=== PATIENT | male | born 1965 ===

== ENCOUNTER 2017-07-25 14:30 | Emergency (ER) | payer SELFPAY ==
[2017-07-25 15:02] VITALS: BP 123/79
--- NOTE | 2017-07-25 15:10 | UC ---
Hand/Wrist HPI - HPI Summary HPI Summary: Pt presents with right wrist pain s/p fall yesterday. He tells me that he slipped on the ice and fell with his hands outwards. His right wrist bent backwards. Has been painful since. He has not taken anything for his pain. He wants to make sure that it is not fractured. Denies numbness, tingling, or history of injury. - History Of Current Complaint Chief Complaint: UCUpperExtremity Stated Complaint: HAND INJURY Time Seen by Provider: 07/25/17 15:05 Hx Obtained From: Patient Mechanism Of Injury: FOOSH Onset/Duration: Sudden Onset Severity Initially: Mild Severity Currently: Mild Pain Intensity: 2 Pain Scale Used: 0-10 Numeric Character Of Pain: Aching, Stiffness Aggravating Factor(s): Movement, Lifting Alleviating Factor(s): Rest - Allergies/Home Medications Allergies/Adverse Reactions: Allergies Allergy/AdvReac Type Severity Reaction Status Date / Time Penicillins Allergy Anaphylatic Verified 07/25/17 15:02 Shock Home Medications: Home Medications NK [No Home Medications Reported] 07/25/17 [History Confirmed 07/25/17] PMH/Surg Hx/FS Hx/Imm Hx Previously Healthy: Yes - Surgical History Surgical History: None - Family History Known Family History: Positive: None - Social History Lives: Alone Alcohol Use: Occasionally Substance Use Type: None Smoking Status (MU): Never Smoked Tobacco Review of Systems Constitutional: Negative Skin: Negative Respiratory: Negative Cardiovascular: Negative Motor: Negative Neurovascular: Negative Musculoskeletal: Other: - Pain right wrist Neurological: Negative Psychological: Negative All Other Systems Reviewed And Are Negative: Yes Physical Exam Triage Information Reviewed: Yes Appearance: Well-Appearing, No Pain Distress, Well-Nourished Vital Signs: Initial Vital Signs Temp 98.4 F 07/25/17 14:57 Pulse 92 07/25/17 14:57 Resp 18 07/25/17 14:57 BP 123/79 07/25/17 14:57 Pulse Ox 98 07/25/17 14:57 Vital Signs Reviewed: Yes Neck: Positive: Supple, Nontender Respiratory: Positive: Lungs clear, Normal breath sounds, No respiratory distress, No accessory muscle use Cardiovascular: Positive: RRR, No Murmur, Pulses Normal - Radial and ulnar Musculoskeletal: Positive: Strength Intact - Right wrise, ROM Intact - Right wrist, Edema @ - Right wrist mild, Other: - Right wrist: Mild TTP over dorsal aspect. No snuffbox tenderness. No obvious bony deformities or ecchymosis. Neurological: Positive: Alert, Other: - Sensations intact right hand and all fingers Psychological: Positive: Age Appropriate Behavior Skin: Negative: rashes, significant lesion(s) Hand/Wrist Course/Dx - Course Course Of Treatment: XR: IMPRESSION: NO ACUTE FRACTURE. Provided with a right wrist cock up splint. Advised RICE and ibuprofen prn. F/u if symptoms persist - Differential Dx/Diagnosis Provider Diagnoses: Right wrist pain. Fall Discharge - Discharge Plan Condition: Stable Disposition: HOME Patient Education Materials: Wrist Sprain (ED) Referrals: No Primary Care Phys,NOPCP [Primary Care Provider] - Additional Instructions: If you develop a fever, shortness of breath, chest pain, new or worsening symptoms - please call your PCP or go to the ED. 1) Rest, Ice, and elevate your wrist as much as possible for the next 24-48 hours 2) May take ibuprofen 600mg every 6-8 hours as needed for pain.
--- NOTE | 2017-07-25 15:45 | RAD ---
INDICATION: Right wrist pain. Fall. COMPARISON: None TECHNIQUE: AP, lateral, and oblique views were obtained. FINDINGS: There is no acute fracture or dislocation. 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 Mild soft tissue swelling. IMPRESSION: NO ACUTE FRACTURE.
== END 2017-07-25 16:05 | disposition home or self-care (01) ==
LOC: UCEAST 14:30
DX: M25.531 Pain in right wrist (principal); Z88.0 Allergy status to penicillin
CPT/HCPCS: 99202; G0463

== ENCOUNTER 2021-03-25 22:11 | Inpatient (IN) ==
[2021-03-25 22:59] LABS: ABS Lymphocytes 1.6 10^3/ul (1.0-4.8); ABS Monocytes 0.6 10^3/ul (0-0.8); ABS Neutrophils 13.5 10^3/ul (1.5-7.7); Eosinophil % 0.2 %; Hematocrit 43 % (42-52); Hemoglobin 14.6 g/dL (14.0-18.0); Lymphocyte % 10.3 %; Mean Corpuscular HGB Conc 34 g/dL (31-36); Mean Corpuscular Hemoglobin 31 pg (27-31); Mean Corpuscular Volume 91 fL (80-94); Mean Platelet Volume 7.8 fL (7.4-10.4); Platelet Count 178 10^3/uL (150-450); Red Blood Count 4.68 10^6 /uL (4.18-5.48); Red Cell Distribution Width 13 % (10-15); White Blood Count 15.8 10^3/uL (3.5-10.8)
[2021-03-25 23:06] LABS: Rapid COVID-19 Molecular Undetected (Undetected)
[2021-03-26 00:14] LABS: Albumin 2.9 g/dL (3.2-5.2); Anion Gap 10 mmol/L (2-11); CO2 Carbon Dioxide 29 mmol/L (22-32); Calcium 10.7 mg/dL (8.6-10.3); Chloride 94 mmol/L (101-111); Potassium 3.9 mmol/L (3.5-5.0); Sodium 133 mmol/L (135-145)
[2021-03-26 00:20] LABS: ALT 67 U/L (7-52); AST 64 U/L (13-39); Albumin/Globulin Ratio 0.6 (1-3); Alkaline Phosphatase 87 U/L (35-149); Blood Urea Nitrogen 44 mg/dL (6-24); Globulin 4.7 g/dL (2-4); Glucose 121 mg/dL (70-100); Total Protein 7.6 g/dL (6.4-8.9)
[2021-03-26] MEDS ORDERED: Aztreonam 2 GM in NS 0.9% 50 ML 50 ML IVPB ONE (00:24)
[2021-03-26] MEDS ORDERED: Levofloxacin 750 MG IVPREMIX 750 MG/150 ML BAG IVPB ONE (00:24)
[2021-03-26] MEDS ORDERED: Heparin DRIP 25,000 UNITS BAG 25,000 UNITS/500 ML BAG IV SCH ×2 (00:30→03:00)
[2021-03-26] MEDS ORDERED: Heparin 5000 UNITS/ML 1 mL VIAL IV SCH ×2 (01:00→03:00)
[2021-03-26] MEDS ORDERED: NS 0.9% 50 ML 50 ML ONE (01:03)
[2021-03-26 01:05] LABS: Troponin I 0.12 ng/mL (<0.03)
[2021-03-26] MEDS ORDERED: Iodixanol (CONTRAST) 320 MG/ML 100 ML SDV IV ONE (01:09)
[2021-03-26] MEDS ORDERED: Dexamethasone IV 4 MG/ML VIAL 1 ml VIAL IV SLOW PU ONE (01:35)
[2021-03-26 05:26] LABS: ABS Basophils 0.1 10^3/ul (0-0.2); ABS Lymphocytes 1.3 10^3/ul (1.0-4.8); ABS Monocytes 0.5 10^3/ul (0-0.8); ABS Neutrophils 11.5 10^3/ul (1.5-7.7); Eosinophil % 0.1 %; Hematocrit 40 % (42-52); Hemoglobin 13.9 g/dL (14.0-18.0); Lymphocyte % 9.8 %; Mean Corpuscular HGB Conc 35 g/dL (31-36); Mean Corpuscular Hemoglobin 32 pg (27-31); Mean Corpuscular Volume 91 fL (80-94); Mean Platelet Volume 7.9 fL (7.4-10.4); Platelet Count 155 10^3/uL (150-450); Red Blood Count 4.38 10^6 /uL (4.18-5.48); Red Cell Distribution Width 13 % (10-15); White Blood Count 13.4 10^3/uL (3.5-10.8)
[2021-03-26 05:38] LABS: Activated Partial Thrombo Time 31.7 seconds (26.0-38.0); INR 1.68 (0.86-1.15)
[2021-03-26] MEDS: cefTRIAXone ADVAN VIAL 1 GM in NS 0.9% 50 ML 50 ML IVPB SCH (05:40)
[2021-03-26 05:44] LABS: ALT 54 U/L (7-52); AST 47 U/L (13-39); Albumin 2.7 g/dL (3.2-5.2); Albumin/Globulin Ratio 0.6 (1-3); Alkaline Phosphatase 72 U/L (35-149); Globulin 4.3 g/dL (2-4); Indirect Bilirubin 0.5 mg/dL (0.3-1.0)
[2021-03-26 06:02] LABS: Troponin I 0.06 ng/mL (<0.03)
[2021-03-26 06:07] LABS: Influenza A Molecular Negative (Negative); Influenza B Molecular Negative (Negative)
[2021-03-26] MEDS: Azithromycin 500 mg/250 ml NS 500 MG/250 ML BAG IVPB SCH (06:09)
[2021-03-26 07:55] LABS: Anion Gap 9 mmol/L (2-11); CO2 Carbon Dioxide 25 mmol/L (22-32); Chloride 97 mmol/L (101-111); Potassium 4.5 mmol/L (3.5-5.0); Sodium 131 mmol/L (135-145)
[2021-03-26 08:01] LABS: Blood Urea Nitrogen 37 mg/dL (6-24); Glucose 114 mg/dL (70-100)
[2021-03-26] MEDS: Enoxaparin 100 MG/ML SYR SUBCUT SCH ×2 (11:51→23:09)
[2021-03-27 07:43] LABS: ABS Eosinophils 0.1 10^3/ul (0-0.6); ABS Lymphocytes 1.9 10^3/ul (1.0-4.8); ABS Monocytes 0.6 10^3/ul (0-0.8); ABS Neutrophils 11.8 10^3/ul (1.5-7.7); Eosinophil % 0.9 %; Hematocrit 40 % (42-52); Hemoglobin 13.7 g/dL (14.0-18.0); Mean Corpuscular HGB Conc 35 g/dL (31-36); Mean Corpuscular Hemoglobin 32 pg (27-31); Mean Corpuscular Volume 92 fL (80-94); Mean Platelet Volume 7.9 fL (7.4-10.4); Platelet Count 204 10^3/uL (150-450); Red Blood Count 4.32 10^6 /uL (4.18-5.48); Red Cell Distribution Width 14 % (10-15); White Blood Count 14.5 10^3/uL (3.5-10.8)
[2021-03-27 08:00] LABS: Albumin 2.5 g/dL (3.2-5.2); Albumin/Globulin Ratio 0.6 (1-3); Calcium 10.7 mg/dL (8.6-10.3); Globulin 3.9 g/dL (2-4); Magnesium 2.3 mg/dL (1.9-2.7); Phosphorus 3.5 mg/dL (2.5-5.0); Potassium 4.9 mmol/L (3.5-5.0); Total Bilirubin 0.5 mg/dL (0.2-1.0); Total Protein 6.4 g/dL (6.4-8.9)
[2021-03-27] MEDS: cefTRIAXone ADVAN VIAL 1 GM in NS 0.9% 50 ML 50 ML IVPB SCH (08:44)
[2021-03-27] MEDS ORDERED: Morphine 2 MG/ML SYRINGE IV ONE ×2 (09:06→23:13)
[2021-03-27] MEDS: Azithromycin 500 mg/250 ml NS 500 MG/250 ML BAG IVPB SCH (09:23)
[2021-03-27] MEDS: Enoxaparin 100 MG/ML SYR SUBCUT SCH ×3 (11:18→23:28)
[2021-03-27] MEDS: Morphine 2 MG/ML SYRINGE IV PRN ×2 (15:43→19:48)
[2021-03-28] MEDS: Morphine 2 MG/ML SYRINGE IV PRN ×3 (01:02→17:57)
[2021-03-28 05:14] LABS: ABS Basophils 0.1 10^3/ul (0-0.2); ABS Eosinophils 0.5 10^3/ul (0-0.6); ABS Lymphocytes 2.3 10^3/ul (1.0-4.8); ABS Monocytes 0.5 10^3/ul (0-0.8); ABS Neutrophils 10.9 10^3/ul (1.5-7.7); Eosinophil % 3.2 %; Hematocrit 44 % (42-52); Hemoglobin 15.3 g/dL (14.0-18.0); Lymphocyte % 16.1 %; Mean Corpuscular HGB Conc 35 g/dL (31-36); Mean Corpuscular Hemoglobin 32 pg (27-31); Mean Corpuscular Volume 92 fL (80-94); Mean Platelet Volume 7.6 fL (7.4-10.4); Platelet Count 254 10^3/uL (150-450); Red Blood Count 4.78 10^6 /uL (4.18-5.48); Red Cell Distribution Width 14 % (10-15); White Blood Count 14.2 10^3/uL (3.5-10.8)
[2021-03-28 05:31] LABS: Magnesium 2.2 mg/dL (1.9-2.7); Phosphorus 4.2 mg/dL (2.5-5.0)
[2021-03-28] MEDS: Azithromycin 500 mg/250 ml NS 500 MG/250 ML BAG IVPB SCH (09:13)
[2021-03-28] MEDS: cefTRIAXone ADVAN VIAL 1 GM in NS 0.9% 50 ML 50 ML IVPB SCH (09:13)
[2021-03-28] MEDS: SELENIUM 200 MCG PO SCH (10:59)
[2021-03-28] MEDS: BARICITINIB 2 MG PO SCH (11:33)
[2021-03-28] MEDS: Acetylcysteine 600mgCAP(RENAL) PO SCH (11:33)
[2021-03-28] MEDS: Enoxaparin 100 MG/ML SYR SUBCUT SCH ×2 (11:33→22:19)
[2021-03-28 11:55] LABS: Calcium 11.2 mg/dL (8.6-10.3); Magnesium 1.9 mg/dL (1.9-2.7)
[2021-03-29] MEDS: Morphine 2 MG/ML SYRINGE IV PRN ×4 (03:52→20:13)
[2021-03-29 05:24] LABS: ABS Basophils 0.1 10^3/ul (0-0.2); ABS Eosinophils 0.6 10^3/ul (0-0.6); ABS Lymphocytes 2.4 10^3/ul (1.0-4.8); ABS Monocytes 0.7 10^3/ul (0-0.8); Hematocrit 43 % (42-52); Hemoglobin 14.7 g/dL (14.0-18.0); Lymphocyte % 15.2 %; Mean Corpuscular HGB Conc 34 g/dL (31-36); Mean Corpuscular Hemoglobin 31 pg (27-31); Mean Corpuscular Volume 92 fL (80-94); Mean Platelet Volume 7.5 fL (7.4-10.4); Platelet Count 237 10^3/uL (150-450); Red Blood Count 4.69 10^6 /uL (4.18-5.48); Red Cell Distribution Width 13 % (10-15); White Blood Count 15.9 10^3/uL (3.5-10.8)
[2021-03-29 05:41] LABS: Magnesium 2.1 mg/dL (1.9-2.7); Phosphorus 3.1 mg/dL (2.5-5.0)
[2021-03-29] MEDS: Azithromycin 500 mg/250 ml NS 500 MG/250 ML BAG IVPB SCH (08:55)
[2021-03-29] MEDS: SELENIUM 200 MCG PO SCH (08:55)
[2021-03-29] MEDS: Acetylcysteine 600mgCAP(RENAL) PO SCH (08:55)
[2021-03-29] MEDS: cefTRIAXone ADVAN VIAL 1 GM in NS 0.9% 50 ML 50 ML IVPB SCH (08:55)
[2021-03-29] MEDS: BARICITINIB 2 MG PO SCH (09:29)
[2021-03-29] MEDS: Enoxaparin 100 MG/ML SYR SUBCUT SCH ×2 (09:29→22:42)
[2021-03-30] MEDS: Morphine 2 MG/ML SYRINGE IV PRN ×5 (00:17→20:33)
[2021-03-30 05:18] LABS: ABS Basophils 0.1 10^3/ul (0-0.2); ABS Eosinophils 0.7 10^3/ul (0-0.6); ABS Lymphocytes 3.3 10^3/ul (1.0-4.8); ABS Monocytes 0.6 10^3/ul (0-0.8); ABS Neutrophils 11.7 10^3/ul (1.5-7.7); Eosinophil % 4.3 %; Hematocrit 44 % (42-52); Hemoglobin 15.1 g/dL (14.0-18.0); Lymphocyte % 19.8 %; Mean Corpuscular HGB Conc 34 g/dL (31-36); Mean Corpuscular Hemoglobin 32 pg (27-31); Mean Corpuscular Volume 92 fL (80-94); Mean Platelet Volume 7.6 fL (7.4-10.4); Nucleated Red Blood Cells % 0.1; Platelet Count 244 10^3/uL (150-450); Red Blood Count 4.79 10^6 /uL (4.18-5.48); Red Cell Distribution Width 13 % (10-15); White Blood Count 16.5 10^3/uL (3.5-10.8)
[2021-03-30 05:31] LABS: Albumin 2.6 g/dL (3.2-5.2); Albumin/Globulin Ratio 0.5 (1-3); Calcium 10.5 mg/dL (8.6-10.3); Globulin 4.8 g/dL (2-4); Potassium 4.6 mmol/L (3.5-5.0); Total Bilirubin 0.4 mg/dL (0.2-1.0); Total Protein 7.4 g/dL (6.4-8.9)
[2021-03-30] MEDS: Acetylcysteine 600mgCAP(RENAL) PO SCH (08:43)
[2021-03-30] MEDS: Saline NASAL SPRAY 0.65% BTL BOTH NARES PRN (08:45)
[2021-03-30] MEDS: SELENIUM 200 MCG PO SCH (08:47)
[2021-03-30] MEDS: Azithromycin 500 mg/250 ml NS 500 MG/250 ML BAG IVPB SCH (10:02)
[2021-03-30] MEDS: cefTRIAXone ADVAN VIAL 1 GM in NS 0.9% 50 ML 50 ML IVPB SCH (10:02)
[2021-03-30] MEDS ORDERED: Furosemide 20 mg/2 ml IV VIAL IV SLOW PU ONE (10:20)
[2021-03-30] MEDS: Enoxaparin 100 MG/ML SYR SUBCUT SCH ×2 (11:26→23:29)
[2021-03-30] MEDS: BARICITINIB 2 MG PO SCH (11:29)
[2021-03-31] MEDS: Morphine 2 MG/ML SYRINGE IV PRN ×3 (00:10→19:32)
[2021-03-31 04:37] LABS: Hematocrit 43 % (42-52); Hemoglobin 14.9 g/dL (14.0-18.0); Mean Corpuscular HGB Conc 35 g/dL (31-36); Mean Corpuscular Hemoglobin 32 pg (27-31); Mean Corpuscular Volume 92 fL (80-94); Mean Platelet Volume 7.1 fL (7.4-10.4); Platelet Count 310 10^3/uL (150-450); Red Cell Distribution Width 14 % (10-15); White Blood Count 11.9 10^3/uL (3.5-10.8)
[2021-03-31 04:51] LABS: Albumin 2.8 g/dL (3.2-5.2); Albumin/Globulin Ratio 0.6 (1-3); Calcium 10.7 mg/dL (8.6-10.3); Globulin 4.7 g/dL (2-4); Magnesium 2.2 mg/dL (1.9-2.7); Total Bilirubin 0.4 mg/dL (0.2-1.0); Total Protein 7.5 g/dL (6.4-8.9)
[2021-03-31 04:54] LABS: Potassium 5.6 mmol/L (3.5-5.0)
[2021-03-31 05:17] LABS: ABS Basophils 0.1 10^3/ul (0-0.2); ABS Eosinophils 0.4 10^3/ul (0-0.6); ABS Lymphocytes 4.3 10^3/ul (1.0-4.8); ABS Monocytes 0.6 10^3/ul (0-0.8); ABS Neutrophils 6.5 10^3/ul (1.5-7.7); Eosinophil % 3.6 %; Nucleated Red Blood Cells % 0.1
[2021-03-31] MEDS ORDERED: SODIUM ZIRCONIUM CYCLOSILICATE 10 GM PACKET PO ONE (05:39)
[2021-03-31] MEDS: Acetylcysteine 600mgCAP(RENAL) PO SCH (08:12)
[2021-03-31] MEDS: SELENIUM 200 MCG PO SCH (08:13)
[2021-03-31] MEDS ORDERED: Lorazepam PYXIS KEY ONE ×2 (08:16→08:25)
[2021-03-31] MEDS ORDERED: LORazepam 2 mg VIAL 1 ml ONE (08:17)
[2021-03-31] MEDS: cefTRIAXone ADVAN VIAL 1 GM in NS 0.9% 50 ML 50 ML IVPB SCH (09:48)
[2021-03-31] MEDS: Enoxaparin 100 MG/ML SYR SUBCUT SCH ×2 (12:10→23:22)
[2021-03-31] MEDS: BARICITINIB 2 MG PO SCH (13:13)
[2021-03-31] MEDS: methylPREDNISolone SOD 40 mg/ml 1 ml VIAL IV SCH ×2 (14:34→23:22)
[2021-04-01] MEDS: Morphine 2 MG/ML SYRINGE IV PRN ×4 (01:42→20:35)
[2021-04-01] MEDS: methylPREDNISolone SOD 40 mg/ml 1 ml VIAL IV SCH ×3 (05:16→20:35)
[2021-04-01 05:29] LABS: ABS Basophils 0.1 10^3/ul (0-0.2); ABS Lymphocytes 1.5 10^3/ul (1.0-4.8); ABS Monocytes 0.5 10^3/ul (0-0.8); ABS Neutrophils 16.4 10^3/ul (1.5-7.7); Eosinophil % 0.2 %; Hematocrit 45 % (42-52); Hemoglobin 15.2 g/dL (14.0-18.0); Lymphocyte % 7.9 %; Mean Corpuscular HGB Conc 34 g/dL (31-36); Mean Corpuscular Hemoglobin 31 pg (27-31); Mean Corpuscular Volume 92 fL (80-94); Mean Platelet Volume 6.9 fL (7.4-10.4); Platelet Count 329 10^3/uL (150-450); Red Blood Count 4.85 10^6 /uL (4.18-5.48); Red Cell Distribution Width 14 % (10-15); White Blood Count 18.4 10^3/uL (3.5-10.8)
[2021-04-01 05:51] LABS: Albumin 2.9 g/dL (3.2-5.2); Albumin/Globulin Ratio 0.6 (1-3); Globulin 4.8 g/dL (2-4); Magnesium 2.1 mg/dL (1.9-2.7); Phosphorus 2.9 mg/dL (2.5-5.0); Potassium 4.4 mmol/L (3.5-5.0); Total Bilirubin 0.3 mg/dL (0.2-1.0); Total Protein 7.7 g/dL (6.4-8.9)
[2021-04-01] MEDS ORDERED: Furosemide 20 mg/2 ml IV VIAL IV ONE (08:42)
[2021-04-01] MEDS ORDERED: Furosemide 20 mg/2 ml IV VIAL ONE (08:58)
[2021-04-01] MEDS: cefTRIAXone ADVAN VIAL 1 GM in NS 0.9% 50 ML 50 ML IVPB SCH (08:59)
[2021-04-01] MEDS: Enoxaparin 100 MG/ML SYR SUBCUT SCH ×2 (09:00→22:50)
[2021-04-01] MEDS: SELENIUM 200 MCG PO SCH (09:00)
[2021-04-01] MEDS: BARICITINIB 2 MG PO SCH (09:00)
[2021-04-01] MEDS ORDERED: diPHENhydraMINE 25 mg TAB PO PRN (10:09)
[2021-04-02] MEDS: methylPREDNISolone SOD 40 mg/ml 1 ml VIAL IV SCH ×3 (04:56→21:29)
[2021-04-02] MEDS: Morphine 2 MG/ML SYRINGE IV PRN ×5 (05:11→21:25)
[2021-04-02 05:12] LABS: ABS Basophils 0.1 10^3/ul (0-0.2); ABS Lymphocytes 2.1 10^3/ul (1.0-4.8); ABS Neutrophils 13.1 10^3/ul (1.5-7.7); Eosinophil % 0.2 %; Hematocrit 42 % (42-52); Hemoglobin 14.4 g/dL (14.0-18.0); Lymphocyte % 12.9 %; Mean Corpuscular HGB Conc 34 g/dL (31-36); Mean Corpuscular Hemoglobin 31 pg (27-31); Mean Corpuscular Volume 92 fL (80-94); Mean Platelet Volume 7.3 fL (7.4-10.4); Platelet Count 342 10^3/uL (150-450); Red Blood Count 4.58 10^6 /uL (4.18-5.48); Red Cell Distribution Width 14 % (10-15); White Blood Count 16.3 10^3/uL (3.5-10.8)
[2021-04-02 05:29] LABS: Albumin 2.9 g/dL (3.2-5.2); Albumin/Globulin Ratio 0.7 (1-3); Globulin 4.4 g/dL (2-4); Magnesium 2.1 mg/dL (1.9-2.7); Phosphorus 3.8 mg/dL (2.5-5.0); Potassium 4.2 mmol/L (3.5-5.0); Total Bilirubin 0.4 mg/dL (0.2-1.0); Total Protein 7.3 g/dL (6.4-8.9)
[2021-04-02] MEDS ORDERED: Furosemide 20 mg/2 ml IV VIAL IV SLOW PU ONE (10:25)
[2021-04-02] MEDS: BARICITINIB 2 MG PO SCH (10:55)
[2021-04-02] MEDS: Enoxaparin 100 MG/ML SYR SUBCUT SCH ×2 (10:55→23:46)
[2021-04-03] MEDS: Morphine 2 MG/ML SYRINGE IV PRN ×5 (02:18→21:47)
[2021-04-03] MEDS: methylPREDNISolone SOD 40 mg/ml 1 ml VIAL IV SCH ×3 (04:35→21:00)
[2021-04-03 06:12] LABS: ABS Basophils 0.1 10^3/ul (0-0.2); ABS Lymphocytes 2.4 10^3/ul (1.0-4.8); ABS Monocytes 1.3 10^3/ul (0-0.8); Eosinophil % 0.2 %; Hematocrit 44 % (42-52); Hemoglobin 14.8 g/dL (14.0-18.0); Mean Corpuscular HGB Conc 34 g/dL (31-36); Mean Corpuscular Hemoglobin 31 pg (27-31); Mean Corpuscular Volume 92 fL (80-94); Mean Platelet Volume 7.5 fL (7.4-10.4); Platelet Count 377 10^3/uL (150-450); Red Blood Count 4.74 10^6 /uL (4.18-5.48); Red Cell Distribution Width 14 % (10-15); White Blood Count 19.7 10^3/uL (3.5-10.8)
[2021-04-03 06:30] LABS: Albumin 3.1 g/dL (3.2-5.2); Albumin/Globulin Ratio 0.7 (1-3); Globulin 4.2 g/dL (2-4); Phosphorus 3.4 mg/dL (2.5-5.0); Potassium 4.8 mmol/L (3.5-5.0); Total Bilirubin 0.3 mg/dL (0.2-1.0); Total Protein 7.3 g/dL (6.4-8.9)
[2021-04-03] MEDS ORDERED: Furosemide 20 mg/2 ml IV VIAL IV SLOW PU ONE (09:09)
[2021-04-03] MEDS: BARICITINIB 2 MG PO SCH (10:59)
[2021-04-03] MEDS: Enoxaparin 100 MG/ML SYR SUBCUT SCH ×2 (10:59→21:47)
[2021-04-03] MEDS: Polyethylene Glycol 3350 17 GM PACKET PO SCH ×2 (19:38→23:00)
[2021-04-04] MEDS: Morphine 2 MG/ML SYRINGE IV PRN ×3 (02:09→23:28)
[2021-04-04 06:15] LABS: ABS Basophils 0.1 10^3/ul (0-0.2); ABS Lymphocytes 2.2 10^3/ul (1.0-4.8); ABS Monocytes 1.1 10^3/ul (0-0.8); ABS Neutrophils 17.6 10^3/ul (1.5-7.7); Eosinophil % 0.1 %; Hematocrit 41 % (42-52); Hemoglobin 14.3 g/dL (14.0-18.0); Lymphocyte % 10.5 %; Mean Corpuscular HGB Conc 35 g/dL (31-36); Mean Corpuscular Hemoglobin 32 pg (27-31); Mean Corpuscular Volume 92 fL (80-94); Mean Platelet Volume 7.5 fL (7.4-10.4); Platelet Count 359 10^3/uL (150-450); Red Blood Count 4.52 10^6 /uL (4.18-5.48); Red Cell Distribution Width 13 % (10-15)
[2021-04-04 06:33] LABS: Albumin 2.9 g/dL (3.2-5.2); Albumin/Globulin Ratio 0.7 (1-3); Calcium 9.7 mg/dL (8.6-10.3); Globulin 4.2 g/dL (2-4); Phosphorus 3.3 mg/dL (2.5-5.0); Potassium 4.1 mmol/L (3.5-5.0); Total Bilirubin 0.5 mg/dL (0.2-1.0); Total Protein 7.1 g/dL (6.4-8.9)
[2021-04-04] MEDS: Polyethylene Glycol 3350 17 GM PACKET PO SCH ×2 (08:16→23:29)
[2021-04-04] MEDS: methylPREDNISolone SOD 40 mg/ml 1 ml VIAL IV SCH (08:17)
[2021-04-04] MEDS: BARICITINIB 2 MG PO SCH (12:58)
[2021-04-04] MEDS: Enoxaparin 100 MG/ML SYR SUBCUT SCH ×2 (12:58→23:28)
[2021-04-05] MEDS: Morphine 2 MG/ML SYRINGE IV PRN ×4 (05:14→19:22)
[2021-04-05 08:31] LABS: ABS Basophils 0.1 10^3/ul (0-0.2); ABS Eosinophils 0.2 10^3/ul (0-0.6); ABS Lymphocytes 2.7 10^3/ul (1.0-4.8); ABS Monocytes 1.2 10^3/ul (0-0.8); ABS Neutrophils 14.3 10^3/ul (1.5-7.7); Eosinophil % 0.9 %; Hematocrit 41 % (42-52); Hemoglobin 13.6 g/dL (14.0-18.0); Lymphocyte % 14.6 %; Mean Corpuscular HGB Conc 34 g/dL (31-36); Mean Corpuscular Hemoglobin 31 pg (27-31); Mean Corpuscular Volume 92 fL (80-94); Mean Platelet Volume 7.2 fL (7.4-10.4); Platelet Count 401 10^3/uL (150-450); Red Cell Distribution Width 14 % (10-15); White Blood Count 18.4 10^3/uL (3.5-10.8)
[2021-04-05 08:49] LABS: Albumin 2.9 g/dL (3.2-5.2); Albumin/Globulin Ratio 0.8 (1-3); Calcium 9.2 mg/dL (8.6-10.3); Globulin 3.8 g/dL (2-4); Magnesium 1.8 mg/dL (1.9-2.7); Potassium 4.3 mmol/L (3.5-5.0); Total Bilirubin 0.4 mg/dL (0.2-1.0); Total Protein 6.7 g/dL (6.4-8.9)
[2021-04-05] MEDS: BARICITINIB 2 MG PO SCH (09:12)
[2021-04-05] MEDS: Enoxaparin 100 MG/ML SYR SUBCUT SCH ×2 (09:13→21:47)
[2021-04-05] MEDS: Polyethylene Glycol 3350 17 GM PACKET PO SCH ×2 (09:14→19:22)
[2021-04-05] MEDS ORDERED: Magnesium Sulfate 2 gm BAG 2 GM/50 ML BAG IVPB ONE (11:10)
[2021-04-05] MEDS: Saline NASAL SPRAY 0.65% BTL BOTH NARES PRN (12:13)
[2021-04-06] MEDS: Morphine 2 MG/ML SYRINGE IV PRN ×4 (02:25→20:59)
[2021-04-06 05:23] LABS: ABS Basophils 0.1 10^3/ul (0-0.2); ABS Eosinophils 0.2 10^3/ul (0-0.6); ABS Lymphocytes 3.5 10^3/ul (1.0-4.8); ABS Monocytes 1.1 10^3/ul (0-0.8); ABS Neutrophils 15.4 10^3/ul (1.5-7.7); Eosinophil % 0.9 %; Hematocrit 38 % (42-52); Hemoglobin 12.7 g/dL (14.0-18.0); Lymphocyte % 17.1 %; Mean Corpuscular HGB Conc 34 g/dL (31-36); Mean Corpuscular Hemoglobin 31 pg (27-31); Mean Corpuscular Volume 92 fL (80-94); Mean Platelet Volume 7.7 fL (7.4-10.4); Platelet Count 417 10^3/uL (150-450); Red Blood Count 4.09 10^6 /uL (4.18-5.48); Red Cell Distribution Width 14 % (10-15); White Blood Count 20.2 10^3/uL (3.5-10.8)
[2021-04-06 05:49] LABS: Albumin 2.7 g/dL (3.2-5.2); Albumin/Globulin Ratio 0.7 (1-3); Calcium 8.7 mg/dL (8.6-10.3); Globulin 3.7 g/dL (2-4); Potassium 3.4 mmol/L (3.5-5.0); Total Bilirubin 0.3 mg/dL (0.2-1.0); Total Protein 6.4 g/dL (6.4-8.9)
[2021-04-06] MEDS ORDERED: Potassium Chlor 20 meq TAB.ER PO ONE (05:58)
[2021-04-06] MEDS: Polyethylene Glycol 3350 17 GM PACKET PO SCH ×2 (08:48→19:52)
[2021-04-06] MEDS: Enoxaparin 100 MG/ML SYR SUBCUT SCH ×2 (15:49→20:59)
[2021-04-06] MEDS: BARICITINIB 2 MG PO SCH (15:55)
[2021-04-07] MEDS: Morphine 2 MG/ML SYRINGE IV PRN ×5 (04:59→21:11)
[2021-04-07 07:06] LABS: ABS Basophils 0.1 10^3/ul (0-0.2); ABS Eosinophils 0.1 10^3/ul (0-0.6); ABS Lymphocytes 3.9 10^3/ul (1.0-4.8); ABS Monocytes 1.1 10^3/ul (0-0.8); ABS Neutrophils 16.8 10^3/ul (1.5-7.7); Eosinophil % 0.6 %; Hematocrit 42 % (42-52); Hemoglobin 14.2 g/dL (14.0-18.0); Lymphocyte % 17.8 %; Mean Corpuscular HGB Conc 33 g/dL (31-36); Mean Corpuscular Hemoglobin 31 pg (27-31); Mean Corpuscular Volume 93 fL (80-94); Mean Platelet Volume 7.6 fL (7.4-10.4); Platelet Count 531 10^3/uL (150-450); Red Blood Count 4.56 10^6 /uL (4.18-5.48); Red Cell Distribution Width 14 % (10-15)
[2021-04-07 07:27] LABS: Albumin 3.1 g/dL (3.2-5.2); Albumin/Globulin Ratio 0.7 (1-3); Calcium 9.7 mg/dL (8.6-10.3); Globulin 4.3 g/dL (2-4); Potassium 4.7 mmol/L (3.5-5.0); Total Bilirubin 0.3 mg/dL (0.2-1.0); Total Protein 7.4 g/dL (6.4-8.9)
[2021-04-07] MEDS: Polyethylene Glycol 3350 17 GM PACKET PO SCH ×2 (08:52→21:02)
[2021-04-07] MEDS: BARICITINIB 2 MG PO SCH ×2 (12:16→13:41)
[2021-04-07] MEDS: Enoxaparin 100 MG/ML SYR SUBCUT SCH ×3 (12:16→21:03)
[2021-04-08] MEDS: Morphine 2 MG/ML SYRINGE IV PRN ×5 (01:45→20:20)
[2021-04-08] MEDS: Polyethylene Glycol 3350 17 GM PACKET PO SCH ×2 (09:47→20:20)
[2021-04-08] MEDS: Enoxaparin 100 MG/ML SYR SUBCUT SCH (09:48)
[2021-04-08] MEDS: BARICITINIB 2 MG PO SCH (09:50)
[2021-04-08 12:38] LABS: ABS Basophils 0.1 10^3/ul (0-0.2); ABS Eosinophils 0.1 10^3/ul (0-0.6); ABS Lymphocytes 2.2 10^3/ul (1.0-4.8); ABS Monocytes 0.8 10^3/ul (0-0.8); Eosinophil % 0.5 %; Hematocrit 39 % (42-52); Hemoglobin 12.9 g/dL (14.0-18.0); Lymphocyte % 11.9 %; Mean Corpuscular HGB Conc 34 g/dL (31-36); Mean Corpuscular Hemoglobin 31 pg (27-31); Mean Corpuscular Volume 93 fL (80-94); Mean Platelet Volume 7.3 fL (7.4-10.4); Platelet Count 514 10^3/uL (150-450); Red Blood Count 4.16 10^6 /uL (4.18-5.48); Red Cell Distribution Width 14 % (10-15); White Blood Count 18.1 10^3/uL (3.5-10.8)
[2021-04-08 12:56] LABS: Albumin 2.9 g/dL (3.2-5.2); Albumin/Globulin Ratio 0.7 (1-3); Calcium 9.4 mg/dL (8.6-10.3); Globulin 3.9 g/dL (2-4); Potassium 4.4 mmol/L (3.5-5.0); Total Bilirubin 0.4 mg/dL (0.2-1.0); Total Protein 6.8 g/dL (6.4-8.9)
[2021-04-09] MEDS ORDERED: Morphine 2 MG/ML SYRINGE IV ONE (01:05)
[2021-04-09] MEDS: Morphine 2 MG/ML SYRINGE IV PRN (05:21)
[2021-04-09 06:29] LABS: Albumin 2.9 g/dL (3.2-5.2); Calcium 9.1 mg/dL (8.6-10.3); Magnesium 1.8 mg/dL (1.9-2.7); Potassium 3.9 mmol/L (3.5-5.0); Total Bilirubin 0.3 mg/dL (0.2-1.0)
[2021-04-09 06:35] LABS: Albumin/Globulin Ratio 0.8 (1-3); Globulin 3.6 g/dL (2-4); Total Protein 6.5 g/dL (6.4-8.9)
[2021-04-09] MEDS ORDERED: Morphine 2 MG/ML SYRINGE IV PRN ×2 (07:53→09:24)
[2021-04-09] MEDS: BARICITINIB 2 MG PO SCH (09:55)
[2021-04-09] MEDS: Polyethylene Glycol 3350 17 GM PACKET PO SCH (09:55)
[2021-04-10] MEDS: BARICITINIB 2 MG PO SCH (08:42)
[2021-04-10] MEDS: Magnesium Hydroxide LIQ 30 ML UDC PO PRN (08:57)
[2021-04-10] MEDS: guaiFENesin 100 mg/5 ml LIQ unit dose cup PO PRN (12:01)
[2021-04-11] MEDS: guaiFENesin 100 mg/5 ml LIQ unit dose cup PO PRN ×2 (00:06→08:05)
[2021-04-12] MEDS: guaiFENesin 100 mg/5 ml LIQ unit dose cup PO PRN ×3 (04:07→20:10)
[2021-04-12] MEDS: Magnesium Hydroxide LIQ 30 ML UDC PO PRN (14:19)
[2021-04-12] MEDS: Saline NASAL SPRAY 0.65% BTL BOTH NARES PRN (17:59)
[2021-04-13] MEDS: guaiFENesin 100 mg/5 ml LIQ unit dose cup PO PRN ×2 (06:39→15:34)
[2021-04-13] MEDS: Saline NASAL SPRAY 0.65% BTL BOTH NARES PRN (10:32)
[2021-04-14] MEDS: Magnesium Hydroxide LIQ 30 ML UDC PO PRN (09:07)
[2021-04-15] MEDS: Magnesium Hydroxide LIQ 30 ML UDC PO PRN ×2 (10:00→21:36)
[2021-04-15] MEDS: guaiFENesin 100 mg/5 ml LIQ unit dose cup PO PRN ×3 (10:00→23:27)
[2021-04-16 10:42] LABS: ABS Basophils 0.1 10^3/ul (0-0.2); ABS Eosinophils 0.5 10^3/ul (0-0.6); ABS Lymphocytes 2.2 10^3/ul (1.0-4.8); ABS Monocytes 0.5 10^3/ul (0-0.8); ABS Neutrophils 12.3 10^3/ul (1.5-7.7); Eosinophil % 2.9 %; Hematocrit 36 % (42-52); Hemoglobin 12.2 g/dL (14.0-18.0); Mean Corpuscular HGB Conc 34 g/dL (31-36); Mean Corpuscular Hemoglobin 31 pg (27-31); Mean Corpuscular Volume 91 fL (80-94); Mean Platelet Volume 6.8 fL (7.4-10.4); Platelet Count 522 10^3/uL (150-450); Red Blood Count 3.99 10^6 /uL (4.18-5.48); Red Cell Distribution Width 14 % (10-15); White Blood Count 15.6 10^3/uL (3.5-10.8)
[2021-04-16 11:02] LABS: Calcium 9.4 mg/dL (8.6-10.3); Potassium 4.3 mmol/L (3.5-5.0)
[2021-04-16 11:15] LABS: Rapid COVID-19 Molecular Undetected (Undetected)
[2021-04-16] MEDS ORDERED: COVID-19 VACCINE, AD26(JANSSEN)/PF 0.5 ML IM ONE (14:00)
[2021-04-16] MEDS: guaiFENesin 100 mg/5 ml LIQ unit dose cup PO PRN (17:11)
[2021-04-16] MEDS: Magnesium Hydroxide LIQ 30 ML UDC PO PRN (22:00)
[2021-04-16] MEDS: Senna TAB 8.6 mg TAB PO PRN (22:00)
[2021-04-17] MEDS: guaiFENesin 100 mg/5 ml LIQ unit dose cup PO PRN (03:29)
[2021-04-17] MEDS: Magnesium Hydroxide LIQ 30 ML UDC PO PRN ×2 (09:57→20:25)
[2021-04-17] MEDS: Senna TAB 8.6 mg TAB PO PRN (20:26)
[2021-04-18] MEDS ORDERED: Ondansetron 4 mg VIAL 2 MG/ML 2 ml VIAL IV PRN (03:12)
[2021-04-18 17:16] LABS: TSH Ultra Thyroid Stim Horm 3.01 mcIU/mL (0.34-5.60)
[2021-04-18] MEDS: guaiFENesin 100 mg/5 ml LIQ unit dose cup PO PRN (20:29)
[2021-04-18] MEDS: Senna TAB 8.6 mg TAB PO PRN (20:29)
[2021-04-19] MEDS: guaiFENesin 100 mg/5 ml LIQ unit dose cup PO PRN (19:17)
[2021-04-19] MEDS: Senna TAB 8.6 mg TAB PO PRN (19:17)
[2021-04-19] MEDS: Magnesium Hydroxide LIQ 30 ML UDC PO PRN (19:18)
[2021-04-20] MEDS: Magnesium Hydroxide LIQ 30 ML UDC PO PRN (07:51)
[2021-04-20] MEDS: Senna TAB 8.6 mg TAB PO PRN (07:51)
[2021-04-20 12:02] LABS: Rapid COVID-19 Molecular Undetected (Undetected)
[2021-04-20 12:47] VITALS: BP 111/81
== END 2021-04-20 13:20 | DRG 137 ==
LOC: ED 22:11 → ICU 03-26 03:06 → SUATTDRO 03-26 03:06 → ICU 03-26 05:30 → MED 03-26 17:28 → ICU 03-27 15:37 → MED 04-04 18:00
PROVIDERS: ADMIT Internal Medicine; ATTEND Internal Medicine